=== PATIENT | male | born 1975 | race Caucasian/White ===

== ENCOUNTER 2022-12-13 10:33 | Emergency (ER) | payer MEDICAID, OTHER ==
[~2022-12-13] VITALS: Ht 177.8 cm; Wt 81.6 kg
--- NOTE | 2022-12-13 10:35 | NUR ---
MD WYLIE AT BEDSIDE FOR ASSESS AND MSE.
[2022-12-13 10:40] VITALS: BP 127/88
[2022-12-13 11:01] LABS: BASOPHILS # (AUTO) 0.1 K/uL (0.00-0.22); BASOPHILS % (AUTO) 1.2 % (0.0-2.0); EOSINOPHILS # (AUTO) 0.2 K/uL (0-0.4); EOSINOPHILS % (AUTO) 2.2 % (0.0-4.0); HEMATOCRIT 20.2 % (36-52); LYMPHOCYTES # (AUTO) 1.5 K/uL (2.0-11.5); LYMPHOCYTES % (AUTO) 14.1 % (20.5-51.1); MEAN CORPUSCULAR HEMOGLOBIN 31 pg (27-31); MEAN CORPUSCULAR HGB CONC 33 g/dL (33-37); MEAN CORPUSCULAR VOLUME 93.7 fL (80-94); MONOCYTES # (AUTO) 0.7 K/uL (0.8-1.0); MONOCYTES % (AUTO) 6.4 % (1.7-9.3); NEUTROPHILS # (AUTO) 8.3 K/uL (1.8-7.7); NEUTROPHILS % (AUTO) 76.1 % (42.2-75.2); PLATELET COUNT (AUTO) 410 K/uL (140-450); RED BLOOD CELL COUNT(AUTO) 2.16 MIL/uL (4.20-6.10); RED CELL DISTRIBUTION WIDTH 16.2 % (11.6-13.7); WHITE BLOOD COUNT (AUTO) 10.9 K/uL (4.8-10.8)
[2022-12-13 11:08] LABS: HEMOGLOBIN 6.7 g/dL (12.0-18.0)
[2022-12-13 11:19] LABS: ALBUMIN 2.2 g/dL (3.4-5.0); ANION GAP 17.5 (8-16); ASPARTATE AMINOTRANSFERASE 30 U/L (15-37); CARBON DIOXIDE 20.4 mmol/L (21-32); CHLORIDE 108 mmol/L (98-107); GFR ARICAN-AMERICAN 9 mL/min (>90); GLUCOSE 98 mg/dL (74-106); MAGNESIUM 2.1 mg/dL (1.8-2.4); PHOSPHORUS 7.5 mg/dL (2.5-4.9); POTASSIUM 4.9 mmol/L (3.5-5.1); SODIUM SERUM 141 mmol/L (136-145); TOTAL BILIRUBIN 0.2 mg/dL (0.0-1.0)
[2022-12-13 11:29] LABS: UREA NITROGEN, BLOOD 64 mg/dL (7-18)
[2022-12-13 11:30] LABS: CREATININE 8.2 mg/dL (0.6-1.3)
[2022-12-13 13:25] LABS: OPIATE, URINE POSITIVE ng/mL (NEG <=2000)
[2022-12-13 13:26] LABS: BARBITURATE, URINE NEGATIVE ng/ml (NEG <=200); BENZODIAZEPINE, URINE NEGATIVE ng/mL (NEG <=200); CANNABINOID, URINE NEGATIVE ng/mL (NEG <=50); COCAINE, URINE NEGATIVE ng/mL (NEG <=300); PHENCYCLIDINE SCREEN,URINE NEGATIVE ng/mL (NEG <=25)
[2022-12-13] MEDS ORDERED: NALO4SPR NS (13:49)
[2022-12-13 16:15] VITALS: BP 137/81
--- NOTE | 2022-12-13 16:15 | NUR ---
Patient discharged with v/s stable. Written and verbal after care instructions given and explained. Patient alert, oriented and verbalized understanding of instructions. Ambulatory with to car. All questions addressed prior to discharge. ID band removed. Patient advised to follow up with PMD. Rx of NARCAN given. Patient educated on indication of medication including possible reaction and side effects. Opportunity to ask questions provided and answered.IV D/C'D, PROVIDED UBER RIDE TO DESTINATION BY COMMAND AND CONTROL SPECIALIST ISRAEL.
== END 2022-12-13 16:15 | disposition home or self-care (01) ==
LOC: MED 10:33
DX: D64.9 Anemia, unspecified (principal); R53.1 Weakness; F11.10 Opioid abuse, uncomplicated; N18.6 End stage renal disease; F11.90 Opioid use, unspecified, uncomplicated; R60.0 Localized edema; Z20.822 Contact with and (suspected) exposure to COVID-19; Z99.2 Dependence on renal dialysis; Z79.899 Other long term (current) drug therapy; Z98.890 Other specified postprocedural states
CPT/HCPCS: 36415; 36430; 71045; 80053; 80305; 83735; 83880; 84100; 84484; 85025; 86886; 86900; 86901; 86920; 87426; 93005; 99285; P9016

== ENCOUNTER 2022-12-17 16:43 | Emergency (ER) | payer BC, MEDICAID ==
[~2022-12-17] VITALS: Ht 180.3 cm; Wt 79.4 kg
[~2022-12-17 16:43] MED LIST: NALO4SPR NS
[2022-12-17 16:45] VITALS: BP 134/87
--- NOTE | 2022-12-17 16:57 | NUR ---
Pt bib bls for bilat hip pain for several days. Pt is supposed to go to dialysis but has not gone for 10 days. Pt was seen here at [facility] within the past week. Pt admits to IV drug use, last use was 2 days ago.
--- NOTE | 2022-12-17 17:00 | NUR ---
Baljinder coker in ED - 12/17/22 at 1703 by [email or web address] Pt a/o x 4, vss, no ss of acute distress, breathing equal and unlabored, speech clear.
--- NOTE | 2022-12-17 17:03 | NUR ---
Pt a/o x 4, vss, no ss of acute distress, breathing equal and unlabored, speech is slow but understandable, on monitor. Pain is 6/10, bilat hip, non radiating, constant, worse with walking.
[2022-12-17 17:50] LABS: BASOPHILS # (AUTO) 0.1 K/uL (0.00-0.22); BASOPHILS % (AUTO) 1.2 % (0.0-2.0); EOSINOPHILS # (AUTO) 0.4 K/uL (0-0.4); EOSINOPHILS % (AUTO) 4.7 % (0.0-4.0); HEMATOCRIT 25.9 % (36-52); HEMOGLOBIN 8.6 g/dL (12.0-18.0); LYMPHOCYTES # (AUTO) 1.7 K/uL (2.0-11.5); LYMPHOCYTES % (AUTO) 20.6 % (20.5-51.1); MEAN CORPUSCULAR HEMOGLOBIN 31 pg (27-31); MEAN CORPUSCULAR HGB CONC 33 g/dL (33-37); MEAN CORPUSCULAR VOLUME 92.4 fL (80-94); MONOCYTES # (AUTO) 0.6 K/uL (0.8-1.0); MONOCYTES % (AUTO) 6.7 % (1.7-9.3); NEUTROPHILS # (AUTO) 5.6 K/uL (1.8-7.7); NEUTROPHILS % (AUTO) 66.8 % (42.2-75.2); PLATELET COUNT (AUTO) 371 K/uL (140-450); RED CELL DISTRIBUTION WIDTH 15.4 % (11.6-13.7); WHITE BLOOD COUNT (AUTO) 8.3 K/uL (4.8-10.8)
--- NOTE | 2022-12-17 17:57 | NUR ---
X-Ray at bedside.
[2022-12-17 18:09] LABS: ALBUMIN 2.2 g/dL (3.4-5.0); TOTAL BILIRUBIN 0.2 mg/dL (0.0-1.0)
[2022-12-17 18:13] LABS: CREATININE 7.8 mg/dL (0.6-1.3)
--- NOTE | 2022-12-17 19:30 | NUR ---
Patient discharged with v/s stable. Written and verbal after care instructions given and explained. Patient verbalized understanding. Ambulatory with steady gait. All questions addressed prior to discharge. Advised to follow up with PMD.
== END 2022-12-17 19:30 | disposition home or self-care (01) ==
LOC: MED 16:43
DX: M16.0 Bilateral primary osteoarthritis of hip (principal); F11.90 Opioid use, unspecified, uncomplicated; F15.90 Other stimulant use, unspecified, uncomplicated; N18.6 End stage renal disease; Z99.2 Dependence on renal dialysis; Z79.899 Other long term (current) drug therapy
CPT/HCPCS: 36415; 71045; 73502; 80053; 85025; 93005; 99285

== ENCOUNTER 2022-12-25 08:20 | Inpatient (IN) | payer BC ==
[~2022-12-25] VITALS: Ht 177.8 cm; Wt 79.4 kg
--- NOTE | 2022-12-25 08:24 | NUR ---
PT MOVED TO BED 02 BY [facility]
[2022-12-25 08:25] VITALS: BP 159/95
--- NOTE | 2022-12-25 08:42 | NUR ---
Patient being evaluated by physician at bedside.
--- NOTE | 2022-12-25 08:57 | NUR ---
X-Ray at bedside.
[2022-12-25] MEDS ORDERED: ceFAZolin 1,000 MG VIAL ONE (09:15)
[2022-12-25 09:32] LABS: BASOPHILS # (AUTO) 0.1 K/uL (0.00-0.22); BASOPHILS % (AUTO) 0.3 % (0.0-2.0); EOSINOPHILS # (AUTO) 0.3 K/uL (0-0.4); EOSINOPHILS % (AUTO) 1.9 % (0.0-4.0); HEMATOCRIT 26.6 % (36-52); HEMOGLOBIN 8.6 g/dL (12.0-18.0); LYMPHOCYTES # (AUTO) 1.6 K/uL (2.0-11.5); MEAN CORPUSCULAR HEMOGLOBIN 30 pg (27-31); MEAN CORPUSCULAR HGB CONC 32 g/dL (33-37); MEAN CORPUSCULAR VOLUME 93.6 fL (80-94); MONOCYTES # (AUTO) 1.2 K/uL (0.8-1.0); MONOCYTES % (AUTO) 6.4 % (1.7-9.3); NEUTROPHILS # (AUTO) 15.1 K/uL (1.8-7.7); NEUTROPHILS % (AUTO) 82.4 % (42.2-75.2); PLATELET COUNT (AUTO) 366 K/uL (140-450); RED BLOOD CELL COUNT(AUTO) 2.84 MIL/uL (4.20-6.10); RED CELL DISTRIBUTION WIDTH 15.2 % (11.6-13.7); WHITE BLOOD COUNT (AUTO) 18.3 K/uL (4.8-10.8)
[2022-12-25 09:45] LABS: APPEARANCE,URINE CLEAR (CLEAR); BILIRUBIN,URINE NEGATIVE (NEGATIVE); BLOOD, URINE 2+ (NEGATIVE); COLOR,URINE YELLOW (YELLOW); LEUKOCYTE ESTERASE ,URINE NEGATIVE (NEGATIVE); NITRITE, URINE NEGATIVE (NEGATIVE); UGLUCOSE 1+ (NEGATIVE)
[2022-12-25 09:53] LABS: ALBUMIN 2.2 g/dL (3.4-5.0); ANION GAP 22.1 (8-16); ASPARTATE AMINOTRANSFERASE 25 U/L (15-37); CARBON DIOXIDE 12.4 mmol/L (21-32); CHLORIDE 108 mmol/L (98-107); GFR ARICAN-AMERICAN 9 mL/min (>90); GLUCOSE 83 mg/dL (74-106); POTASSIUM 4.5 mmol/L (3.5-5.1); SODIUM SERUM 138 mmol/L (136-145); TOTAL BILIRUBIN 0.2 mg/dL (0.0-1.0)
[2022-12-25 09:58] LABS: PROTHROMBIN TIME 10.5 secs (10.8-13.4)
[2022-12-25 09:59] LABS: BARBITURATE, URINE NEGATIVE ng/ml (NEG <=200); BENZODIAZEPINE, URINE NEGATIVE ng/mL (NEG <=200); CANNABINOID, URINE NEGATIVE ng/mL (NEG <=50); COCAINE, URINE POSITIVE ng/mL (NEG <=300); OPIATE, URINE POSITIVE ng/mL (NEG <=2000); PHENCYCLIDINE SCREEN,URINE NEGATIVE ng/mL (NEG <=25)
--- NOTE | 2022-12-25 09:59 | NUR ---
Patient states he does not taking any home medication. Med rec complete.
[2022-12-25 10:09] LABS: UREA NITROGEN, BLOOD 75 mg/dL (7-18)
[2022-12-25 10:10] LABS: CREATININE 8.3 mg/dL (0.6-1.3)
--- NOTE | 2022-12-25 11:13 | NUR ---
Patient is laying in bed, resiprations even and unlabored. All needs met by staff.
--- NOTE | 2022-12-25 13:35 | NUR ---
Patient was offered juice and sandwich.
--- NOTE | 2022-12-25 13:38 | NUR ---
Patient's BP continues to be high. Dr Mccoy made aware.
[2022-12-25] MEDS ORDERED: hydrALAZINE 20 MG/ML VIAL IVP ONE (13:45)
--- NOTE | 2022-12-25 15:11 | NUR ---
PATIENT HAS BEEN SCREENED AND CATEGORIZED MODERATE NUTRITION RISK. PATIENT WILL BE SEEN WITHIN 3-5 DAYS OF ADMISSION. 12/28/22-12/30/[address]
--- NOTE | 2022-12-25 15:32 | NUR ---
Patient will be admitted to care of Dr. Torres. Admited to Telemetry. Will go to room 116. Belongings list completed. Report to JOSE Hanson.
[2022-12-25 15:35] VITALS: BP 163/107
--- NOTE | 2022-12-25 15:35 | NUR ---
PT ARRIVED TO [facility] VIA GURNEY FROM ER. PT IS AOX4. RESPIRATIONS EVEN AND UNLABORED ON RA. SKIN WARM AND DRY. BLISTERS NOTED ON HEAD, CHEEKS, EAR, AND HANDS. PT ORIENTED TO UNIT, ROOM AND CALL LIGHT. ALL SAFETY PRECAUTIONS IN PLACE.
[2022-12-25] MEDS ORDERED: ACETAMINOPHEN 325 MG TAB PO PRN (16:20)
[2022-12-25] MEDS ORDERED: ONDANSETRON 4 MG/2 ML VIAL IM/IVP PRN (16:20)
[2022-12-25] MEDS ORDERED: guaiFENesin DM 200/20 MG-10 ML 10 ML UDC PO PRN (16:20)
[2022-12-25] MEDS ORDERED: DOCUSATE SODIUM 100 MG GELCAP PO PRN (16:20)
[2022-12-25] MEDS ORDERED: ZOLPIDEM 5 MG TAB PO PRN (16:20)
--- NOTE | 2022-12-25 16:40 | NUR ---
The patient's care was reviewed and supervised by [facility], RN.
[2022-12-25 17:06] LABS: CHOL/HDL RATIO 3.1 (1-4.5); MAGNESIUM 1.9 mg/dL (1.8-2.4); PHOSPHORUS 9.2 mg/dL (2.5-4.9)
[2022-12-25 17:07] LABS: FREE T4 (FREE THYROXINE) 0.8 ng/dL (0.76-1.46)
[2022-12-25 17:12] LABS: THYROID STIMULATING HORMONE 5.86 uIU/mL (0.34-3.74)
[2022-12-25] MEDS ORDERED: CALCIUM ACETATE 667 MG TAB PO SCH (18:14)
--- NOTE | 2022-12-25 19:00 | NUR ---
ENDORSED PT TO TYRE FITTER NURSE FOR CONTINUITY OF CARE. PT IS STABLE.
--- NOTE | 2022-12-25 19:30 | NUR ---
RECEIVED REPORT FROM DAY SHIFT NURSE ALEXA FOR CONTINUITY OF CARE. PATIENT IS A&O X4. BREATHING IS NORMAL WITH SYMMETRICAL RISE AND FALL OF CHEST. IV IS A 20G LAC, NO FLUIDS RUNNING. PATIENT IS LYING COMFORTABLY IN BED IN SEMI-FOWLERS POSITION. BED IS IN LOWEST POSITION, WHEELS LOCKED, CALL LIGHT IN PLACE. WILL CONTINUE TO OBSERVE PATIENT.
[2022-12-25 20:00] VITALS: BP 147/105
[2022-12-25] MEDS: CALCIUM ACETATE 667 MG TAB PO SCH (20:47)
--- NOTE | 2022-12-25 22:00 | NUR ---
MD BELL ORDERED HEMODIALYSIS FOR PATIENT. PRINTED OUT CONSENT FOR PATIENT AND WITNESSED PATIENT SIGN CONSENT AT 1954. DIALYSIS NURSE IS CURRENTLY ON UNIT AND OBTAINED DIALYSIS ORDERS FROM MD BELL; ORDERS WERE PUT IN WELL ORDER FOR HEPARIN USE FOR DIALYSIS. 1899 CALCIUM MEDICATION WAS ADMINISTERED TO PATIENT SUCCESSFULLY WITHOUT ANY ISSUES WITH SWALLOWING. PATIENT COMPLAINED OF BEING COLD AND WAS GIVEN A WARM BLANKET. WAS INFORMED BY DIALYSIS NURSE MARK THAT SHE IS STARTING DIALYSIS ON PATIENT; WILL TAKE 2 HRS.
[2022-12-26] VITALS: BP 106/64
--- NOTE | 2022-12-26 00:45 | NUR ---
DIALYSIS FINISHED. DIALYSIS NURSE MARK INFORMED THAT 1 LITTER WAS REMOVED FROM PATIENT. LOOKED IN ON PATIENT. PATIENT IS SLEEPING, LYING IN SEMI-FOWLERS POSITION. BREATHING IS NORMAL WITH SYMMETRICAL RISE AND FALL OF CHEST. WILL CONTINUE TO OBSERVE PATIENT.
[2022-12-26 04:00] VITALS: BP 128/72
--- NOTE | 2022-12-26 05:00 | NUR ---
LOOKED IN ON PATIENT. PATIENT WAS SLEEPING COMFORTABLY, LYING IN SEMI-FOWLERS POSITION. BREATHING WAS NORMAL WITH SYMMETRICAL RISE AND FALL OF CHEST. WILL CONTINUE TO OBSERVE PATIENT.
[2022-12-26 06:56] LABS: BASOPHILS # (AUTO) 0.1 K/uL (0.00-0.22); BASOPHILS % (AUTO) 0.5 % (0.0-2.0); EOSINOPHILS # (AUTO) 0.6 K/uL (0-0.4); EOSINOPHILS % (AUTO) 4.9 % (0.0-4.0); HEMATOCRIT 25.5 % (36-52); HEMOGLOBIN 8.6 g/dL (12.0-18.0); LYMPHOCYTES # (AUTO) 1.6 K/uL (2.0-11.5); LYMPHOCYTES % (AUTO) 13.6 % (20.5-51.1); MEAN CORPUSCULAR HEMOGLOBIN 30 pg (27-31); MEAN CORPUSCULAR HGB CONC 34 g/dL (33-37); MEAN CORPUSCULAR VOLUME 89.4 fL (80-94); MONOCYTES # (AUTO) 0.7 K/uL (0.8-1.0); MONOCYTES % (AUTO) 6.5 % (1.7-9.3); NEUTROPHILS # (AUTO) 8.5 K/uL (1.8-7.7); NEUTROPHILS % (AUTO) 74.5 % (42.2-75.2); PLATELET COUNT (AUTO) 340 K/uL (140-450); RED BLOOD CELL COUNT(AUTO) 2.86 MIL/uL (4.20-6.10); RED CELL DISTRIBUTION WIDTH 14.9 % (11.6-13.7); WHITE BLOOD COUNT (AUTO) 11.4 K/uL (4.8-10.8)
[2022-12-26 06:57] LABS: ANION GAP 16.5 (8-16); CARBON DIOXIDE 23.7 mmol/L (21-32); POTASSIUM 3.2 mmol/L (3.5-5.1)
[2022-12-26 07:35] LABS: CREATININE 5.7 mg/dL (0.6-1.3)
--- NOTE | 2022-12-26 07:38 | NUR ---
ENDORSED TO DAY SHIFT NURSE ALEXA FOR CONTINUITY OF CARE. PATIENT IS STABLE.
--- NOTE | 2022-12-26 07:39 | NUR ---
RECEIVED PT FROM CHAIN SALES REPRESENTATIVE NURSE FOR CONTINUITY OF CARE. PT IS IN BED SLEEPING. VISIBLE CHEST RISE/FALL. RESPIRATIONS EVEN AND UNLABORED ON RA. CALL LIGHT WITHIN REACH. ALL SAFETY PRECAUTIONS IN PLACE.
[2022-12-26 08:00] VITALS: BP 117/69
--- NOTE | 2022-12-26 08:00 | NUR ---
Patient's Plan of Care was discussed and reviewed with LOAN REVIEW OFFICER: Stephanie
[2022-12-26 08:08] LABS: T4 (THYROXINE) 4.7 ug/dL (4.5-12.0)
[2022-12-26] MEDS: CALCIUM ACETATE 667 MG TAB PO SCH ×3 (08:27→17:13)
[2022-12-26] MEDS: POTASSIUM CHLORIDE 10 MEQ TABER PO PRN (08:27)
[2022-12-26] MEDS: PANTOPRAZOLE 40 MG TABEC PO SCH (08:28)
--- NOTE | 2022-12-26 09:03 | NUR ---
FNS CONSULT HAS BEEN RECEIVED FOR WOUNDS/PRESSURE ULCER ON 12/26/22. PATIENT HAS BEEN RE-SCREENED HIGH RISK AND WILL BE SEEN WITHIN 1-2 DAYS OF RECEIVING THE FNS CONSULT. DEMETRIA GIL RD
[2022-12-26 12:00] VITALS: BP 112/74
--- NOTE | 2022-12-26 13:34 | NUR ---
12/26/22 RD INITIAL ASSESSMENT COMPLETED PLEASE REFER TO NUTRITION ASSESSMENT UNDER CARE ACTIVITY FOR ESTIMATED NUTRITIONAL NEEDS. 1. CONTINUE RENAL DIET TOLERATED 2. RD RECOMMENDS JOANIE BID FOR WOUNDS WHICH WILL PROVIDE 160 CALORIES AND 5 GRAMS OF PROTEIN. 3. RD ENCOURAGES PATIENT TO FOLLOW ESRD DIET ONCE HE LEAVES THE HOSPITAL. 4. RD TO FOLLOW-UP 7 DAYS, LOW RISK DEMETRIA GIL, RD
--- NOTE | 2022-12-26 15:31 | NUR ---
RECEIVED ORDER FOR PATIENT TO START HEMODIALYSIS AT [facility] LOCATED AT [address] [id number]. FAXED ALL PAPERWORK TO [facility]. WILL FOLLOW UP WITH UPDATES. Addendum: 12/26/22 at 1622 by Melly Zendejas RN DC PLANNIN YRS OLD MALE PATIENT WAS ADMITTED FROM HOME WITH A DX OF CELLULITIS AND ESRD. PATIENT HAS A HX OF HTN, ESRD AND DRUG ABUSE CXR NORMAL. RAPID COVID TEST NEGATIVE. ADMINISTERED IVF, IV ABX CEFAZOLIN AND CONTINUED HOME MEDS. CONSULTED WITH NEPHRO. DC PLAN TO SET UP OUT PT DIALYSIS. FAXED TO [facility]. CM TO FOLLOW Addendum: 12/26/22 at 1626 by JOSE ANTONIO WOLF CM SPOKE WITH AMINAH AT [facility] WHO INFORMED ME THAT HER ADVISER IS GOING OVER PAPERWORK THEN WILL GIVE US A CALL WITH TIME SLOT. Addendum: 12/27/22 at 1453 by JOSE ANTONIO WOLF CM SPOKE WITH [facility] PATIENT WAS ACCEPTED AND WILL BE HAVING DIALYSIS 3 DAYS A WEEK ON TUESDAYS, THURSDAYS AND SATURDAYS AT 1330.
[2022-12-26 16:00] VITALS: BP 111/60
--- NOTE | 2022-12-26 19:03 | NUR ---
ENDORSED PT TO STEAM ROOM ATTENDANT NURSE FOR CONTINUITY OF CARE. PT IS STABLE.
[2022-12-26] MEDS ORDERED: EPOETIN ALFA-EPBX 10,000 UNITS/ML VIAL SUBQ ONE (19:10)
--- NOTE | 2022-12-26 19:30 | NUR ---
RECEIVED REPORT FROM DAY SHIFT NURSE ALEXA FOR CONTINUITY OF CARE. PATIENT IS A&O X4. BREATHING IS NORMAL WITH SYMMETRICAL RISE AND FALL OF CHEST. LOOKED IN ON PATIENT DURING REPORT AND SAW THAT PATIENT'S IV HAD BEEN PULLED OUT. PATIENT WAS SLEEPING; NO BLOOD PRESENT. WILL PUT NEW IV IN PATIENT. PATIENT IS LYING COMFORTABLY IN BED IN SEMI-FOWLERS POSITION. BED IS IN LOWEST POSITION, WHEELS LOCKED, CALL LIGHT IN PLACE. WILL CONTINUE TO OBSERVE PATIENT.
[2022-12-26 20:00] VITALS: BP 110/64
--- NOTE | 2022-12-26 21:45 | NUR ---
NEW IV WAS PLACED INTO PATIENT BY DAPHNE SAWYER. NEW IV IS A 20G RFA. PATIENT IS SLEEPING. WILL CONTINUE TO OBSERVE PATIENT.
[2022-12-27] VITALS: BP 105/68
--- NOTE | 2022-12-27 01:30 | NUR ---
LOOKED IN ON PATIENT. PATIENT WAS SLEEPING COMFORTABLY; LYING IN SEMI-FOWLERS POSITION. BREATHING IS NORMAL WITH SYMMETRICAL RISE AND FALL OF CHEST. WILL CONTINUE TO OBSERVE PATIENT.
[2022-12-27 04:00] VITALS: BP 126/75
--- NOTE | 2022-12-27 06:04 | NUR ---
PATIENT PULLED OUT HIS IV AGAIN WHILE SLEEPING. NEW IV WAS PLACED INTO PATIENT BY DAPHNE TILLEY. NEW IV IS A 24G R HAND. PATIENT IS SLEEPING. BREATHING IS NORMAL WITH SYMMETRICAL RISE AND FALL OF CHEST. WILL CONTINUE TO OBSERVE PATIENT.
[2022-12-27 06:51] LABS: BASOPHILS # (AUTO) 0.1 K/uL (0.00-0.22); BASOPHILS % (AUTO) 0.9 % (0.0-2.0); EOSINOPHILS # (AUTO) 0.3 K/uL (0-0.4); EOSINOPHILS % (AUTO) 3.7 % (0.0-4.0); HEMATOCRIT 25.9 % (36-52); HEMOGLOBIN 8.6 g/dL (12.0-18.0); LYMPHOCYTES # (AUTO) 1.8 K/uL (2.0-11.5); LYMPHOCYTES % (AUTO) 18.7 % (20.5-51.1); MEAN CORPUSCULAR HEMOGLOBIN 30 pg (27-31); MEAN CORPUSCULAR HGB CONC 33 g/dL (33-37); MONOCYTES # (AUTO) 0.9 K/uL (0.8-1.0); MONOCYTES % (AUTO) 9.2 % (1.7-9.3); NEUTROPHILS # (AUTO) 6.3 K/uL (1.8-7.7); NEUTROPHILS % (AUTO) 67.5 % (42.2-75.2); PLATELET COUNT (AUTO) 303 K/uL (140-450); RED BLOOD CELL COUNT(AUTO) 2.85 MIL/uL (4.20-6.10); RED CELL DISTRIBUTION WIDTH 14.9 % (11.6-13.7); WHITE BLOOD COUNT (AUTO) 9.4 K/uL (4.8-10.8)
--- NOTE | 2022-12-27 07:30 | NUR ---
ENDORSED TO DAY SHIFT NURSE SHERRIE FOR CONTINUITY OF CARE. PATIENT IS STABLE.
[2022-12-27 07:38] LABS: ANION GAP 11.1 (8-16); CARBON DIOXIDE 29.3 mmol/L (21-32); POTASSIUM 3.4 mmol/L (3.5-5.1)
--- NOTE | 2022-12-27 07:41 | NUR ---
GOT REPORT FROM THE NIGHT NURSE, PT AWAKE TEL LED IN THE LEFT CHEST FIXED, DISCUSSED POC. [id number]
[2022-12-27 07:54] LABS: CREATININE 4.9 mg/dL (0.6-1.3)
[2022-12-27 08:00] VITALS: BP 136/64
[2022-12-27] MEDS: CALCIUM ACETATE 667 MG TAB PO SCH ×3 (08:00→17:29)
[2022-12-27] MEDS ORDERED: CALCIUM ACETATE 667 MG TAB PO SCH (08:00)
[2022-12-27] MEDS: CHLORHEXADINE GLUC 2% CLOTH TP SCH (08:30)
[2022-12-27] MEDS: MUPIROCIN CA NASAL 2% 1GM TUBE NS SCH (08:30)
--- NOTE | 2022-12-27 09:25 | NUR ---
WOUND CARE NOTE: WOUND ASSESSMENT DONE ON THIS 47 Y/O PT. AAX4. PT. ADMITTED WITH FACIAL CELLULITIS AND ARM /HANDS/FINGERS CELLULITIS. LEFT CHEEK 1X0.5CM DRY STABLE SCAB. FACIAL ERYTHEMA WITH NO EDEMA, SKIN INTACT. MULTIPLE BLOODY BLISTERING SKIN TO RIGHT HAND WITH LARGEST TO RIGHT INDEX FINGER EXTEND TO RIGHT HAND 5X3CM 1.5CM TALL, STORM WOUND SKIN THIN AND EASILY TO BREAKS. SWELLING, NO ERYTHEMA, PAIN 0/10. LEFT HAND NO ERYTHEMA, NO PAIN, MULTIPLE BLISTERING SKIN TO ALL FINGERS WITH LARGEST TO LEFT INDEX FINGER OPEN BLISTERING SKIN 3X2X0.1CM , WOUND BED PINK AND MOIST, STORM-WOUND SKIN THIN AND EASILY TO BREAK. 5TH FINGER 1X1 CM BROWN STABLE SCAB. PAIN 0/10. POC DISCUSSED WITH PT. PT. VERBALIZES UNDERSTANDING. POC DISCUSSED WITH PRIMARY RN SHERRIE AND CHARGE NURSE ZHENG. RECOMMENDATIONS: -US TO RIGHT UPPER EXTREMITY -CLEANSE BILATERAL HANDS/FINGERS WOUNDS WITH NS, PAT DRY, APPLY XEROFORM DRESSING ,COVER WITH DRY DRESSING,WRAP WITH KERLIX ROLL, SECURED WITH TAPE QD AND PRN IF SOILING
[2022-12-27] MEDS: PANTOPRAZOLE 40 MG TABEC PO SCH (09:42)
[2022-12-27 10:07] LABS: HEPATITIS A ANTIBODY IGM Negative (Negative); HEPATITIS B CORE AB TOTAL Negative (Negative); HEPATITIS B SURFACE ANTIBODY Non Reactive (.); HEPATITIS B SURFACE ANTIGEN Negative (Negative)
[2022-12-27 12:00] VITALS: BP 121/73
[2022-12-27] MEDS: POTASSIUM CHLORIDE 10 MEQ TABER PO PRN (12:08)
[2022-12-27] MEDS ORDERED: NON ADHERENT DRESSING TP PRN (13:25)
--- NOTE | 2022-12-27 15:45 | NUR ---
DRESSING ON LEFT FINGER REINFORCED C/O PT PULLED OUT.[id number]
[2022-12-27 16:00] VITALS: BP 123/77
--- NOTE | 2022-12-27 19:25 | NUR ---
gave report to the night nurse, pt is sleeping ,no sob.pt used bathroom without assistance by néstor
--- NOTE | 2022-12-27 19:26 | NUR ---
RECEIVED PT FROM MORNING SHIFT NURSE. PT IS AOX3-4, AMBULATORY USING WALKER, ABLE TO VERBALIZE NEEDS AND ABLE TO FOLLOW COMMANDS. PT IS ON ROOM AIR AND ON REGULAR DIET. PT HAS IV ON RIGHT FOREARM GAUGE 22, SALINE LOCK. PT HAS RIGHT 2ND FINGER HEMATOMA AND LEFT 2ND FINGER WOUND. NO COMPLAIN OF PAIN AT THIS TIME. NO S/S OF RESPIRATORY DISTRESS NOTED. ALL SAFETY MEASURES IMPLEMENTED. BED IN LOW POSITION. BED WHEELS ON LOCK AND CALL LIGHT WITHIN REACH
[2022-12-27 22:00] VITALS: BP 135/90
--- NOTE | 2022-12-27 22:00 | NUR ---
PT WAS GIVEN WARM BLANKET. NO COMPLAIN OF PAIN AT THIS TIME. NO S/S OF DISTRESS NOTED. ALL SAFETY MEASURES IMPLEMENTED. BED IN LOW POSITION, BED WHEELS ON LOCK AND CALL LIGHT WITHIN REACH.
--- NOTE | 2022-12-28 | NUR ---
PT WAS GIVEN SANDWICH AND PUDDING PER PT REQUEST. NO COMPLAIN OF PAIN. NO S/S OF DISTRESS NOTED. ALL SAFETY MEASURES IMPLEMENTED. BED IN LOW POSITION, BED WHEELS ON LOCK AND CALL LIGHT WITHIN REACH.
--- NOTE | 2022-12-28 02:00 | NUR ---
PT IS SLEEPING. CHEST RISE AND FALL SYMMETRICALLY NOTED. RESPIRATION IS EVEN AND UNLABORED. ALL SAFETY MEASURES IMPLEMENTED. BED IN LOW POSITION. BED WHEELS ON LOCK AND CALL LIGHT WITHIN REACH.
--- NOTE | 2022-12-28 04:00 | NUR ---
MORNING WAS DONE TO PT. CHANGED LINENS, GOWN AND BLANKETS. ALL SAFETY MEASURES IMPLEMENTED. BED IN LOW POSITION. BED WHEELS ON LOCK AND CALL LIGHT WITHIN REACH.
[2022-12-28 07:12] LABS: BASOPHILS # (AUTO) 0.1 K/uL (0.00-0.22); BASOPHILS % (AUTO) 1.1 % (0.0-2.0); EOSINOPHILS # (AUTO) 0.5 K/uL (0-0.4); EOSINOPHILS % (AUTO) 5.6 % (0.0-4.0); HEMATOCRIT 27.7 % (36-52); HEMOGLOBIN 9.2 g/dL (12.0-18.0); LYMPHOCYTES # (AUTO) 2.2 K/uL (2.0-11.5); LYMPHOCYTES % (AUTO) 24.9 % (20.5-51.1); MEAN CORPUSCULAR HEMOGLOBIN 31 pg (27-31); MEAN CORPUSCULAR HGB CONC 33 g/dL (33-37); MONOCYTES # (AUTO) 0.8 K/uL (0.8-1.0); MONOCYTES % (AUTO) 8.5 % (1.7-9.3); NEUTROPHILS # (AUTO) 5.4 K/uL (1.8-7.7); NEUTROPHILS % (AUTO) 59.9 % (42.2-75.2); PLATELET COUNT (AUTO) 302 K/uL (140-450); RED BLOOD CELL COUNT(AUTO) 3.01 MIL/uL (4.20-6.10)
--- NOTE | 2022-12-28 07:20 | NUR ---
RECEIVED REPORT FROM BUSINESS MAIL ENTRY CLERK FOR CONTINUITY OF CARE. ALERT AND ORIENTED X 4. RESP. EVEN AND UNLABORED. IV SITE INTACT TO RFA. ON SALINE LOCK. ON CONTACT ISOLATION D/T MRSA NARES. NO C/O PAIN OR DISCOMFORT. CALL LIGHT KEPT WITHIN REACH. PT WILL MONITOR CLOSELY.
[2022-12-28 07:26] LABS: ANION GAP 13.2 (8-16); CARBON DIOXIDE 25.9 mmol/L (21-32); POTASSIUM 4.1 mmol/L (3.5-5.1)
--- NOTE | 2022-12-28 07:28 | NUR ---
PT IS STABLE. ENDORSED PT TO MORNING SHIFT NURSE FOR CONTINUITY OF CARE.
[2022-12-28 07:46] LABS: CREATININE 5.9 mg/dL (0.6-1.3)
[2022-12-28 08:00] VITALS: BP 147/98
--- NOTE | 2022-12-28 08:04 | NUR ---
Patient's Plan of Care was discussed and reviewed with ENVIRONMENTAL RESTORATION PLANNER: Shakila
[2022-12-28] MEDS: CHLORHEXADINE GLUC 2% CLOTH TP SCH (08:30)
[2022-12-28] MEDS: PANTOPRAZOLE 40 MG TABEC PO SCH (09:31)
[2022-12-28] MEDS: MUPIROCIN CA NASAL 2% 1GM TUBE NS SCH (09:31)
[2022-12-28] MEDS: CALCIUM ACETATE 667 MG TAB PO SCH ×3 (09:31→17:31)
--- NOTE | 2022-12-28 10:45 | NUR ---
RECEIVED NEW ORDER FROM DR. DE LA CRUZ, HEPARIN 5000 IV X 1 FOR HD. ORDER NOTED AND CARRIED OUT.
[2022-12-28] MEDS: HYDROcodone/APAP 7.5/325 MG 1 TAB PO PRN ×2 (12:25→17:31)
--- NOTE | 2022-12-28 12:26 | NUR ---
PHOS LO PO AND PRN NORCO WAS GIVEN FOR PAIN MANAGEMENT. TOLERATED WELL.
[2022-12-28] MEDS ORDERED: NON ADHERENT DRESSING TP SCH (13:00)
--- NOTE | 2022-12-28 13:00 | NUR ---
WOUND CARE DONE TO LT FINGER. NO BLEEDING, MINIMAL DRAINAGE NOTED. TOLERATED WELL.
--- NOTE | 2022-12-28 13:10 | NUR ---
HEMODIALYSIS COMPLETED. 1 L REMOVED IN 2 HRS.
[2022-12-28 16:00] VITALS: BP 146/86
--- NOTE | 2022-12-28 17:31 | NUR ---
PHOS LO PO AND PRN NORCO WAS GIVEN FOR PAIN MANAGEMENT. TOLERATED WELL.
--- NOTE | 2022-12-28 18:30 | NUR ---
IV INFILTRATED. REINSERTED TO LFA 22G, WITH GOOD BLOOD RETURN. TOLERATED WELL.
--- NOTE | 2022-12-28 18:53 | NUR ---
ANCEF IV WAS GIVEN BY [place] SERNA. TOLERATED WELL.
--- NOTE | 2022-12-28 19:05 | NUR ---
BEDSIDE REPORT GIVEN TO OUTBOARD MOTOR ASSEMBLER FOR CONTINUITY OF CARE. REMAINS STABLE.
--- NOTE | 2022-12-28 19:06 | NUR ---
RECEIVED PT FROM MORNING SHIFT NURSE. PT IS AOX4, AMBULATORY USING WALKER, ABLE TO VERBALIZE NEEDS AND ABLE TO FOLLOW COMMANDS. PT IS ON ROOM AIR AND ON REGULAR DIET. PT HAS IV ON LEFT FOREARM GAUGE 22, SALINE LOCK. PT HAS RIGHT 2ND FINGER BLISTER AND LEFT 2ND FINGER WOUND. PT HAS RIGHT UPPER CHEST TUNNEL CATHETER. NO COMPLAIN OF PAIN AT THIS TIME. NO S/S OF RESPIRATORY DISTRESS NOTED. ALL SAFETY MEASURES IMPLEMENTED. BED IN LOW POSITION. BED WHEELS ON LOCK AND CALL LIGHT WITHIN REACH
--- NOTE | 2022-12-28 22:00 | NUR ---
PT WAS GIVEN JELLO AND PUDDING PER PT REQUEST. NO COMPLAIN OF PAIN. NO S/S OF RESPIRATORY DISTRESS NOTED. ALL SAFETY MEASURES IMPLEMENTED. BED IN LOW POSITION. BED WHEELS ON LOCK AND CALL LIGHT WITHIN REACH
[2022-12-29] VITALS: BP 135/91
--- NOTE | 2022-12-29 | NUR ---
PT IS ON SLEEP. CHEST RISE AND FALL SYMMETRICALLY NOTED. RESPIRATION IS EVEN AND UNLABORED. ALL SAFETY MEASURES IMPLEMENTED. BED IN LOW POSITION. BED WHEELS ON LOCK AND CALL LIGHT WITHIN REACH
--- NOTE | 2022-12-29 02:00 | NUR ---
PT ACCIDENTALLY REMOVED HIS IV. INSERTED IV ON LEFT FOREARM GAUGE 22. IV IS PATENT AND INTACT. COVERED IT WITH BANDAGE. ALL SAFETY MEASURES IMPLEMENTED. BED IN LOW POSITION. BED WHEELS ON LOCK AND CALL LIGHT WITHIN REACH
--- NOTE | 2022-12-29 04:00 | NUR ---
PT WAS ON SLEEP AGAIN. CHEST RISE AND FALL SYMMETRICALLY NOTED. RESPIRATION IS EVEN AND UNLABORED. ALL SAFETY MEASURES IMPLEMENTED. BED IN LOW POSITION. BED WHEELS ON LOCK AND CALL LIGHT WITHIN REACH
[2022-12-29 07:05] LABS: BASOPHILS # (AUTO) 0.1 K/uL (0.00-0.22); BASOPHILS % (AUTO) 1.2 % (0.0-2.0); EOSINOPHILS # (AUTO) 0.6 K/uL (0-0.4); EOSINOPHILS % (AUTO) 6.9 % (0.0-4.0); HEMATOCRIT 28.6 % (36-52); HEMOGLOBIN 9.6 g/dL (12.0-18.0); LYMPHOCYTES # (AUTO) 2.4 K/uL (2.0-11.5); LYMPHOCYTES % (AUTO) 25.2 % (20.5-51.1); MEAN CORPUSCULAR HEMOGLOBIN 31 pg (27-31); MEAN CORPUSCULAR HGB CONC 34 g/dL (33-37); MEAN CORPUSCULAR VOLUME 91.4 fL (80-94); MONOCYTES # (AUTO) 0.8 K/uL (0.8-1.0); MONOCYTES % (AUTO) 8.5 % (1.7-9.3); NEUTROPHILS # (AUTO) 5.4 K/uL (1.8-7.7); NEUTROPHILS % (AUTO) 58.2 % (42.2-75.2); PLATELET COUNT (AUTO) 273 K/uL (140-450); RED BLOOD CELL COUNT(AUTO) 3.13 MIL/uL (4.20-6.10); RED CELL DISTRIBUTION WIDTH 14.7 % (11.6-13.7); WHITE BLOOD COUNT (AUTO) 9.3 K/uL (4.8-10.8)
--- NOTE | 2022-12-29 07:09 | NUR ---
receive the patient from the awake overnight counselor rn in 116 aox4 with admitting diagnosis opf cellulitis , ESRD to schedule hemodialysis in [facility] . will continue to monitor
[2022-12-29 07:17] LABS: ANION GAP 14.3 (8-16); CARBON DIOXIDE 23.8 mmol/L (21-32); POTASSIUM 4.1 mmol/L (3.5-5.1)
--- NOTE | 2022-12-29 07:21 | NUR ---
PT IS STABLE. ENDORSED PT TO MORNING SHIFT NURSE FOR CONTINUITY OF CARE.
[2022-12-29 07:27] LABS: CREATININE 5.3 mg/dL (0.6-1.3)
[2022-12-29 08:00] VITALS: BP 121/89
[2022-12-29] MEDS: CALCIUM ACETATE 667 MG TAB PO SCH ×2 (08:57→12:10)
[2022-12-29] MEDS: PANTOPRAZOLE 40 MG TABEC PO SCH (08:57)
[2022-12-29] MEDS: CHLORHEXADINE GLUC 2% CLOTH TP SCH (08:58)
[2022-12-29] MEDS: MUPIROCIN CA NASAL 2% 1GM TUBE NS SCH (08:58)
--- NOTE | 2022-12-29 09:39 | NUR ---
laboratory called with low BUN . notified . will schedule outpatient hemodialysis
[2022-12-29] MEDS: HYDROcodone/APAP 7.5/325 MG 1 TAB PO PRN (09:40)
--- NOTE | 2022-12-29 13:45 | NUR ---
the patient signed the form decided to go against medical advice . brought to the lobby in wheelchair in a stable condition . no sign and symptoms of respiratory distress . no complain of pain at this time
[2022-12-31] MEDS ORDERED: EPOETIN ALFA-EPBX 10,000 UNITS/ML VIAL IV SCH (09:00)
== END 2022-12-29 13:54 | disposition left against medical advice (07) | DRG 720 ==
LOC: MED 08:20 → MTU 14:49
PROVIDERS: ADMIT Family Medicine; ATTEND Family Medicine
PROC: 5A1D70Z Performance of Urinary Filtration, Intermittent, Less than 6 Hours Per Day (ICD-10-PCS; principal; 2022-12-25)
PROC: 5A1D70Z Performance of Urinary Filtration, Intermittent, Less than 6 Hours Per Day (ICD-10-PCS; 2022-12-26)
PROC: 5A1D70Z Performance of Urinary Filtration, Intermittent, Less than 6 Hours Per Day (ICD-10-PCS; 2022-12-27)
DX: A41.9 Sepsis, unspecified organism (principal); N17.0 Acute kidney failure with tubular necrosis; G93.41 Metabolic encephalopathy; E43 Unspecified severe protein-calorie malnutrition; N18.6 End stage renal disease; E83.39 Other disorders of phosphorus metabolism; D63.8 Anemia in other chronic diseases classified elsewhere; I12.0 Hypertensive chronic kidney disease with stage 5 chronic kidney disease or end stage renal disease; L03.211 Cellulitis of face; S01.80XA Unspecified open wound of other part of head, initial encounter; S61.409A Unspecified open wound of unspecified hand, initial encounter; X58.XXXA Exposure to other specified factors, initial encounter; E87.6 Hypokalemia; Z20.822 Contact with and (suspected) exposure to COVID-19; L03.119 Cellulitis of unspecified part of limb; Z99.2 Dependence on renal dialysis; Z59.00 Homelessness unspecified; Z91.158 Patient's noncompliance with renal dialysis for other reason; Y93.89 Activity, other specified; Y92.89 Other specified places as the place of occurrence of the external cause; Y99.8 Other external cause status; Z68.25 Body mass index [BMI] 25.0-25.9, adult
CPT/HCPCS: 36415; 71045; 80048; 80053; 80305; 81001; 82150; 82550; 83036; 83605; 83690; 83735; 83880; 84100; 84436; 84439; 84443; 84479; 84484; 85025; 85610; 85730; 86704; 86706; 86708; 86709; 86803; 87040; 87081; 87086; 87340; 90471; 90715; 93971; 96365; 96375; 99285; J0360; J0690; J1644; J7060; Q0092; Q5106